=== PATIENT | female | born 1940 | race Caucasian/White ===

== ENCOUNTER 2016-09-25 08:21 | Day surgery (SDC) | payer BC, MEDICARE ==
--- NOTE | 2016-09-25 07:22 | PCM.PREANE ---
Preanesthetic Assessment - Anesthesia/Transfusion/Family Hx Anesthesia History: Prior Anesthesia Without Reaction Type of Anesthesia Reaction: Other (see below) (a bit of nausea with shoulder surgery which patient states was a longer procedure.) Family History of Anesthesia Reaction: No Transfusion History: No Prior Transfusion(s) Intubation History: Unknown - Review of Systems General: No Symptoms, Fatigue (noted per patient due to family stresses.) Pulmonary: No Symptoms (History of UCHE, quit smoking approximately 30 years ago. (1/2 pack/day times 4 yrs history)) Cardiovascular: No Symptoms (History of rheumatic fever, HTN), Dyspnea on Exertion, Edema (History of pedal edema with patient taking lasix.), Lightheadedness (with blood sugar levels per patient.) Gastrointestinal: No symptoms Neurological: No Symptoms (History of arthritits, achy bilateral feet noted per patient since she was a teenager.) Other: Reports: Diabetes (BS @ [id number]), Thyroid Problems (hypothyroidism), Sinus Problem (seasonal allergies noted with plugged ears noted.), Depression - Physical Assessment NPO Status Date: 09/24/16 NPO Status Time: 21:00 Pulse: 83 O2 Sat by Pulse Oximetry: 94 Respiratory Rate: 17 Blood Pressure: 149/56 Temperature: 37.3 C Height: 1.68 m Weight: 111.13 kg ASA Class: 3 Mental Status: Alert & Oriented x3 Airway Class: Mallampati = 2 Dentition: Reports: Normal Dentition, [place](s), Caries Thyro-Mental Finger Breadths: 3 Mouth Opening Finger Breadths: 3 ROM/Head Extension: Full Lungs: Clear to auscultation, Normal respiratory effort Cardiovascular: Regular Rate, Regular Rhythm - Lab Values: hgb=14.7 hct=43.8 ucbcewtwe=221,000 Wr=316 K=4.3 qd=130 CO2=23 BUN=22 CR=0.81 - Imaging/EKG Impressions: EKG: normal sinus rhythm rate=94 CXR: negative - Allergies Allergies/Adverse Reactions: Allergies Allergy/AdvReac Type Severity Reaction Status Date / Time amoxicillin trihydrate Allergy gi upset Verified 09/24/16 16:32 [From Augmentin] potassium clavulanate Allergy gi upset Verified 09/24/16 16:32 [From Augmentin] Sulfa (Sulfonamide Allergy Hives Verified 09/24/16 16:32 Antibiotics) - Anesthesia Plan Pre-Op Medication Ordered: None - Acknowledgements Anesthesia Type Planned: General Anesthesia Pt an Appropriate Candidate for the Planned Anesthesia: Yes Alternatives and Risks of Anesthesia Discussed w Pt/Guardian: Yes Pt/Guardian Understands and Agrees with Anesthesia Plan: Yes PreAnesthesia Questionnaire HEENT History: Reports: Impaired vision Cardiovascular History: Reports: High cholesterol, Hypertension Respiratory History: Reports: None Gastrointestinal History: Reports: Colon polyp Genitourinary History: Reports: None 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 (see below) Other OB/BYN History: post menopausal bleeding, UTI ovarian cyst Musculoskeletal History: Reports: Arthritis, Other (see below) Other Musculoskeletal History: knee pain Neurological History: Reports: None Psychiatric History: Reports: Depression Endocrine/Metabolic History: Reports: Diabetes, type II, Hypothyroidism, Obesity /BMI 30+ Hematologic History: Reports: None Immunologic History: Reports: None Oncologic (Cancer) History: Reports: None Dermatologic History: Reports: None - Past Surgical History Head Surgeries/Procedures: Reports: None GI Surgical History: Reports: Colonoscopy Musculoskeletal Surgical History: Reports: Other (see below) Other Musculoskeletal Surgeries/Procedures:: femur surgery, R shoulder surgery, Left total knee replacement - SUBSTANCE USE Smoking Status *Q: Former Smoker Recreational Drug Use History: No - HOME MEDS Home Medications: Home Meds Lisinopril 5 mg PO DAILY 12/01/14 [History] Simvastatin [Zocor] 10 mg PO BEDTIME 12/01/14 [History] Verapamil [Calan SR] 240 mg PO DAILY 12/01/14 [History] metFORMIN HCl [Metformin HCl ER] 1,000 mg PO BID 12/01/14 [History] Albuterol [Ventolin HFA] 1 - 2 puff INH Q4H PRN 09/24/16 [History] Furosemide [Furosemide] 20 - 40 mg PO DAILY PRN 09/24/16 [History] Ibuprofen 200 - 600 mg PO Q6H PRN 09/24/16 [History] Levothyroxine Sodium [Levothyroxine Sodium] 100 mcg PO DAILY 09/24/16 [History] Sertraline HCl [Sertraline HCl] 75 mg PO DAILY 09/24/16 [History] glipiZIDE [Glipizide ER] 10 mg PO DAILY 09/24/16 [History] - CURRENT (IN HOUSE) MEDS Current Meds: Current Medications Lactated Ringer's (Ringers, Lactated) 1,000 mls @ 125 mls/hr IV ASDIRECTED KIMBERLEE Stop: 09/25/16 23:00 Lidocaine/Sodium Bicarbonate (Buffered Lidocaine 1% In Ns 8.4%) 0.25 ml IV ONETIME PRN PRN Reason: Prior to IV Start Stop: 09/25/16 18:00 Sodium Chloride (Saline Flush) 10 ml FLUSH ASDIRECTED PRN PRN Reason: Keep Vein Open Stop: 09/25/16 18:00
[~2016-09-25 08:21] MED LIST: Lactated Ringers 1,000 ML IV SCH; Lidocaine 1% 6 ML ONE; Lidocaine 1%/Sod Bicarbonate in NS 8.4% 1 ML Syringe IV PRN; Ondansetron 4 MG/2 ML SDV ONE; Propofol 200 MG/20 ML SDV ONE; Sodium Chloride 0.9% 10 ML Syringe FLUSH PRN; Succinylcholine/Normal Saline 100 MG/5 ML Syringe ONE; fentaNYL 100 MCG/2 ML SDV ONE
[2016-09-25] MEDS ORDERED: Ondansetron 4 MG/2 ML SDV IVPUSH PRN (09:46)
[2016-09-25] MEDS ORDERED: Metoclopramide 10 MG/2 ML SDV IV PRN (09:46)
[2016-09-25] MEDS ORDERED: Albuterol 0.083% 2.5 MG/3 ML Neb Soln NEB PRN (09:46)
[2016-09-25] MEDS ORDERED: diphenhydrAMINE 50 MG/ML SDV IVPUSH PRN (09:46)
[2016-09-25] MEDS ORDERED: Albuterol 6.7 GM Inhaler INH ONE (09:56)
--- NOTE | 2016-09-25 10:11 | PCM.POSTAN ---
POST ANESTHESIA ASSESSMENT - MENTAL STATUS Mental Status: alert - VITAL SIGNS Pulse Rate: 77 SaO2: 95 Resp Rate: 18 Blood Pressure: 148/68 Temperature: 37.1 C - RESPIRATORY Respiratory Status: respiratory rate WNL, airway patent, O2 saturation stable, supplemental oxygen - CARDIOVASCULAR CV Status: pulse rate WNL, blood pressure stable - GASTROINTESTINAL GI Status: no symptoms - POST OP HYDRATION Hydration Status: adequate & stable
[2016-09-25] MEDS ORDERED: HYDROmorphone 0.5 MG/0.5 ML Syringe IVPUSH PRN (10:45)
[2016-09-25] MEDS ORDERED: fentaNYL 100 MCG/2 ML SDV IVPUSH PRN (10:45)
[2016-09-25] MEDS ORDERED: Ibuprofen 600 MG Tab PO ONE (11:45)
[2016-09-25 12:34] VITALS: BP 129/68
--- NOTE | 2016-09-25 12:57 | PCM48HPAN ---
Post Anesthesia Note - EVALUATION WITHIN 48HRS OF ANESTHETIC Vital Signs in Normal Range: Yes Patient Participated in Evaluation: Yes Respiratory Function Stable: Yes Airway Patent: Yes Cardiovascular Function Stable: Yes Hydration Status Stable: Yes Pain Control Satisfactory: Yes Nausea and Vomiting Control Satisfactory: Yes Mental Status Recovered: Yes
--- NOTE | 2016-09-25 15:36 | PCM.OPNOTE ---
- General Post-Op/Procedure Note Date of Surgery/Procedure: 09/25/16 Operative Procedure(s): hysteroscopy and dilation and curettage Findings: uterine polyps, very vascular Pre Op Diagnosis: postmenopausal bleeding Post-Op Diagnosis: Same Anesthesia Technique: General ET tube Primary Surgeon: Bella Parra Anesthesia Provider: Marcela Khan Pathology: endometrial curettings EBL in mLs: 10 Condition: Good Free Text/Narrative:: Intake & Output 09/25/16 09/25/16 09/25/16 06:59 14:59 22:59 Intake Total 150 Balance 150 Brief description: Pt was brought to the operating room placed under general anesthetic. She was placed in lithotomy position. The self retaining speculum was placed and the cervix identified. Anterior lip of cervix was grasped with single toothed tenaculum. Cervix was gently dilated to allow passage of 5 mm hysteroscope. Using NS distention media the cavity was inspected with a polyp and significant vascularities findings. Both tubal ostia were seen. The scope was removed and D&C was done. TThe tenaculum was removed and the cervix was hemastatic. Pt tolerated the procedure well and was taken to the recovery room in good condition.
== END 2016-09-25 13:15 | disposition home or self-care (01) ==
LOC: JD.SDS 08:21
PROVIDERS: ATTEND Obstetrics & Gynecology
PROC: 0UDB8ZX Extraction of Endometrium, Via Natural or Artificial Opening Endoscopic, Diagnostic (ICD-10-PCS; principal; 2016-09-25)
DX: C56.9 Malignant neoplasm of unspecified ovary (principal); Z88.2 Allergy status to sulfonamides; E11.9 Type 2 diabetes mellitus without complications; Z79.84 Long term (current) use of oral hypoglycemic drugs; F32.9 Major depressive disorder, single episode, unspecified; E03.9 Hypothyroidism, unspecified; I10 Essential (primary) hypertension; E78.5 Hyperlipidemia, unspecified; M19.90 Unspecified osteoarthritis, unspecified site; Z86.19 Personal history of other infectious and parasitic diseases; Z79.899 Other long term (current) drug therapy; Z96.652 Presence of left artificial knee joint
CPT/HCPCS: 58558; 82962; 88305; 94664; A9270; J0330; J2405; J3010; J7120; 00940; J2704

== ENCOUNTER 2020-12-09 13:58 | Emergency (ER) | payer BC ==
[2020-12-09 14:19] VITALS: BP 168/87; PULSE 84
[2020-12-09] MEDS ORDERED: Proparacaine 0.5% Ophth Soln 15 ML Bottle EYERT ONE (15:24)
[2020-12-09] MEDS ORDERED: Sodium Chloride 0.9% 1,000 ML ONE (15:37)
--- NOTE | 2020-12-09 15:54 | EDM.PDOC ---
ED HPI GENERAL MEDICAL PROBLEM - General Chief Complaint: Eye Problems Stated Complaint: EYE PAIN Time Seen by Provider: 12/09/20 15:19 Source of Information: Reports: Patient, RN Notes Reviewed History Limitations: Reports: No Limitations - History of Present Illness INITIAL COMMENTS - FREE TEXT/NARRATIVE: Patient is an 80-year-old female presenting to the emergency department for evaluation with regards to right eye watering and burning. She reports that she was cleaning her feet with Lysol wipes and her eye itched, she scratched her eye and had the solution from the white center hand. Since that time she has been having intermittent burning and watering of the eyes as well as runny nose on the right side. Denies any significant vision changes. eyes Pain Score (Numeric/FACES): 7 - Related Data Allergies Allergy/AdvReac Type Severity Reaction Status Date / Time Sulfa (Sulfonamide Allergy Hives Verified 12/09/20 14:16 Antibiotics) amoxicillin trihydrate AdvReac gi upset Verified 12/10/20 11:27 [From Augmentin] potassium clavulanate AdvReac gi upset Verified 12/10/20 11:27 [From Augmentin] Home Meds: Home Meds Lisinopril 5 mg PO DAILY 12/01/14 [History] Simvastatin [Zocor] 10 mg PO BEDTIME 12/01/14 [History] Verapamil [Calan SR] 240 mg PO DAILY 12/01/14 [History] metFORMIN HCl [Metformin HCl ER] 1,000 mg PO BID 12/01/14 [History] Albuterol [Ventolin HFA] 1 - 2 puff INH Q4H PRN 09/24/16 [History] Furosemide 20 - 40 mg PO DAILY PRN 09/24/16 [History] Ibuprofen 200 - 600 mg PO Q6H PRN 09/24/16 [History] Levothyroxine Sodium 100 mcg PO DAILY 09/24/16 [History] Sertraline HCl 75 mg PO DAILY 09/24/16 [History] glipiZIDE [Glipizide ER] 10 mg PO DAILY 09/24/16 [History] Past Medical History HEENT History: Reports: Impaired Vision Cardiovascular History: Reports: High Cholesterol, Hypertension Respiratory History: Reports: None Gastrointestinal History: Reports: Colon Polyp Genitourinary History: Reports: None 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 (See Below) 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 History: post menopausal bleeding, UTI ovarian cyst Musculoskeletal History: Reports: Arthritis, Other (See Below) Other Musculoskeletal History: knee pain Neurological History: Reports: None Psychiatric History: Reports: Depression Endocrine/Metabolic History: Reports: Diabetes, Type II, Hypothyroidism, Obesity/BMI 30+ Hematologic History: Reports: None Immunologic History: Reports: None Oncologic (Cancer) History: Reports: None Dermatologic History: Reports: None - Past Surgical History Head Surgeries/Procedures: Reports: None GI Surgical History: Reports: Colonoscopy Musculoskeletal Surgical History: Reports: Other (See Below) Other Musculoskeletal Surgeries/Procedures:: femur surgery, R shoulder surgery, Left total knee replacement Social & Family History - Tobacco Use Tobacco Use Status *Q: Never Tobacco User - Caffeine Use Caffeine Use: Reports: Coffee - Recreational Drug Use Recreational Drug Use: No ED ROS GENERAL - Review of Systems Review Of Systems: Comprehensive ROS is negative, except as noted in HPI. ED EXAM GENERAL W FULL EYE - Physical Exam Exam: See Below General Appearance: Alert, WD/WN, No Apparent Distress Eye Exam: Right Eye: Conjunctival Injection Eyelids: Bilateral: Normal Appearance Conjunctiva & Sclera: Right: Injected Pupils: Normal Accommodation Respiratory/Chest: No Respiratory Distress, Lungs Clear, Normal Breath Sounds, No Accessory Muscle Use, Chest Non-Tender Cardiovascular: Normal Peripheral Pulses, Regular Rate, Rhythm, No Edema, No Gallop, No JVD, No Murmur, No Rub Neurological: Alert, Oriented, CN II-XII Intact, Normal Cognition, Normal Gait, Normal Reflexes, No Motor/Sensory Deficits Psychiatric: Normal Affect, Normal Mood Skin Exam: Warm, Dry, Intact, Normal Color, No Rash Course - Vital Signs Last Recorded V/S: Last Vital Signs Temp 98.1 F 12/09/20 14:16 Pulse 84 12/09/20 14:16 Resp 18 12/09/20 14:16 BP 168/87 H 12/09/20 14:16 Pulse Ox 98 12/09/20 14:16 - Orders/Labs/Meds Meds: Medications Discontinued Medications Generic Name Dose Route Start Last Admin Trade Name Freq PRN Reason Stop Dose Admin Sodium Chloride Confirm 12/09/20 15:37 12/09/20 15:49 Normal Saline Administered 12/09/20 15:38 999 mls/hr Dose Administration 1,000 mls @ as directed .ROUTE .STK-MED ONE Proparacaine HCl 1 ml 12/09/20 15:24 12/09/20 15:48 Proparacaine 0.5% Ophth Soln 15 Ml Bottle EYERT 12/09/20 15:25 1 ml ONETIME ONE Administration - Re-Assessments/Exams Free Text/Narrative Re-Assessment/Exam: Patient is an 80-year-old female presenting to the emergency department with complaints of right eye irritation and right runny nose after getting solution from Lysol wipes in her eyes. On exam, she does have tearing and redness of the right eye. Denies any vision changes. We will irrigate the eye with a liter of normal saline using a Roberto lens. I have ordered proparacaine to be applied prior to this. 12/09/20 17:04 Patient tolerated irrigation of the eye well. States that the burning is much improved. Denies any vision changes. Discussed that the solution of the Lysol wipes will dry her eye out. If she finds that later this evening her eye still seems irritated, she can purchase saline eyedrops and instill them in the eye. She verbalized understanding of this. Discharge instructions as documented. Departure - Departure Time of Disposition: 17:05 Disposition: Home, Self-Care 01 Condition: Good Clinical Impression: Eye irritation - Discharge Information *COPY OF PRESCRIPTION DRUG MONITORING REPORT IN PATIENT KARLOS: No Instructions: Eye Foreign Body, [id number] Referrals: Paula Dunbar NP [Primary Care Provider] - Forms: ED Department Discharge Additional Instructions: You were seen in the emergency department today for evaluation after getting solution from Lysol wipes in your eye. Your eye was irrigated with a liter of saline. This did improve your symptoms. As we discussed, the solution from Lysol contains alcohol and will dry your eye out. If you find later this evening that it is watering excessively or still having some discomfort, you can use [id number] saline eyedrops. Return to ER for any new or worsening symptoms. Sepsis Event Note (ED) - Evaluation Sepsis Screening Result: No Definite Risk
== END 2020-12-09 17:20 | disposition home or self-care (01) ==
LOC: JD.ED 13:58
DX: H57.89 Other specified disorders of eye and adnexa (principal); E78.00 Pure hypercholesterolemia, unspecified; I10 Essential (primary) hypertension; E11.9 Type 2 diabetes mellitus without complications; E66.9 Obesity, unspecified; Z68.35 Body mass index [BMI] 35.0-35.9, adult; Z88.2 Allergy status to sulfonamides; Z88.0 Allergy status to penicillin; Z79.899 Other long term (current) drug therapy; Z79.84 Long term (current) use of oral hypoglycemic drugs
CPT/HCPCS: 99283; J7030

== ENCOUNTER 2025-02-13 16:24 | Emergency (ER) | payer BC ==
[2025-02-13] MEDS ORDERED: Sodium Chloride 0.9% 10 ML Syringe FLUSH PRN (16:44)
[2025-02-13 17:16] LABS: BASOPHILS ABSOLUTE AUTO 0.1 K/mm3 (0.0-0.2); BASOPHILS PERCENT AUTO 0.8 % (0.0-1.0); EOSINOPHILS ABSOLUTE AUTO 0.4 K/mm3 (0.0-0.4); EOSINOPHILS PERCENT AUTO 3.9 % (0.0-6.0); IMMATURE GRAN ABSOLUTE AUTO 0.05 K/mm3 (0.00-0.05); IMMATURE GRAN PERCENT AUTO 0.5 % (0.0-0.4); LYMPHOCYTES ABSOLUTE AUTO 1.8 K/mm3 (1.0-4.8); LYMPHOCYTES PERCENT AUTO 19.7 % (24.0-44.0); MEAN PLATELET VOLUME 9.5 fl (9.4-12.3); MONOCYTES ABSOLUTE AUTO 0.7 K/mm3 (0.0-0.8); MONOCYTES PERCENT AUTO 7.1 % (0.0-8.0); NEUTROPHILS ABSOLUTE AUTO 6.3 K/mm3 (1.8-7.7); NEUTROPHILS PERCENT AUTO 68.0 % (41.0-71.0); NRBC ABSOLUTE 0.00 (0.00-0.02); NRBC PERCENT 0.0 % (0.0-0.2); PLATELET COUNT,PLT 240 K/mm3 (150-400); RED BLOOD CELL COUNT 4.81 M/mm3 (4.10-5.30); WHITE BLOOD CELL COUNT,WBC 9.25 K/mm3 (3.9-11.3)
[2025-02-13 17:37] LABS: A/G RATIO 1.0 (1-2); ALANINE AMINOTRANSFERASE,ALT 20 U/L (14-59); ASPARTATE AMNIOTRANSFERASE,AST 14 U/L (15-37); BILIRUBIN TOTAL 0.5 mg/dL (0.2-1.0); BLOOD UREA NITROGEN,BUN 57 mg/dL (7-18); CARBON DIOXIDE,CO2 24 mEq/L (21-32); CHLORIDE,CL 106 mEq/L (98-107); CREATININE 1.8 mg/dL (0.55-1.02); EST CRCL DRUG DOSING (CG) 19.37 mL/min; ESTIMATED GFR 27 mL/min (>60); GLUCOSE RANDOM 111 mg/dL (70-99); POTASSIUM,K 5.7 mEq/L (3.5-5.1); PROTEIN TOTAL,TP 7.9 g/dl (6.4-8.2); SODIUM,NA 139 mEq/L (136-145)
[2025-02-13 19:46] LABS: APPEARANCE,URINE CLEAR (Clear); GLUCOSE,URINE NEGATIVE (Negative); OCCULT BLOOD,URINE NEGATIVE (Negative)
[2025-02-13 20:01] LABS: EPITHELIAL CELLS,URINE 0-5 /hpf (0-5)
[2025-02-13 20:48] LABS: BLOOD UREA NITROGEN,BUN 56.0 mg/dL (7-18); CARBON DIOXIDE,CO2 23.0 mEq/L (21-32); CHLORIDE,CL 108.0 mEq/L (98-107); CREATININE 1.7 mg/dL (0.55-1.02); EST CRCL DRUG DOSING (CG) 20.51 mL/min; ESTIMATED GFR 29.0 mL/min (>60); GLUCOSE RANDOM 101.0 mg/dL (70-99); POTASSIUM,K 5.4 mEq/L (3.5-5.1); SODIUM,NA 141.0 mEq/L (136-145)
[2025-02-13 21:28] VITALS: BP 125/54; PULSE 72
== END 2025-02-13 22:45 | disposition home or self-care (01) ==
LOC: JD.ED 16:24
DX: E86.0 Dehydration (principal); E87.5 Hyperkalemia; R74.8 Abnormal levels of other serum enzymes; I10 Essential (primary) hypertension; E78.00 Pure hypercholesterolemia, unspecified; E03.9 Hypothyroidism, unspecified; E11.9 Type 2 diabetes mellitus without complications; Z88.2 Allergy status to sulfonamides; Z88.8 Allergy status to other drugs, medicaments and biological substances; Z79.84 Long term (current) use of oral hypoglycemic drugs; Z79.899 Other long term (current) drug therapy; Z79.890 Hormone replacement therapy
CPT/HCPCS: 36415; 71046; 71046-26; 80048; 80053; 81001; 85025; 86140; 87086; 87088; 87186; 96360; 96361; 99283; 99285-25; J7030

== ENCOUNTER 2025-03-19 17:11 | Emergency (ER) | payer BC ==
[2025-03-19 17:27] VITALS: BP 102/81; PULSE 103
[2025-03-19] MEDS ORDERED: Sodium Chloride 0.9% 10 ML Syringe FLUSH PRN (17:40)
[2025-03-19 18:29] LABS: BASOPHILS ABSOLUTE AUTO 0.1 K/mm3 (0.0-0.2); BASOPHILS PERCENT AUTO 0.7 % (0.0-1.0); EOSINOPHILS ABSOLUTE AUTO 0.4 K/mm3 (0.0-0.4); EOSINOPHILS PERCENT AUTO 3.5 % (0.0-6.0); IMMATURE GRAN ABSOLUTE AUTO 0.06 K/mm3 (0.00-0.05); IMMATURE GRAN PERCENT AUTO 0.5 % (0.0-0.4); LYMPHOCYTES ABSOLUTE AUTO 3.3 K/mm3 (1.0-4.8); LYMPHOCYTES PERCENT AUTO 28.1 % (24.0-44.0); MEAN PLATELET VOLUME 9.5 fl (9.4-12.3); MONOCYTES ABSOLUTE AUTO 0.9 K/mm3 (0.0-0.8); MONOCYTES PERCENT AUTO 7.6 % (0.0-8.0); NEUTROPHILS ABSOLUTE AUTO 6.9 K/mm3 (1.8-7.7); NEUTROPHILS PERCENT AUTO 59.6 % (41.0-71.0); NRBC ABSOLUTE 0.00 (0.00-0.02); NRBC PERCENT 0.0 % (0.0-0.2); PLATELET COUNT,PLT 172 K/mm3 (150-400); RED BLOOD CELL COUNT 4.28 M/mm3 (4.10-5.30); WHITE BLOOD CELL COUNT,WBC 11.60 K/mm3 (3.9-11.3)
[2025-03-19 18:54] LABS: INR 1.06
[2025-03-19 18:55] LABS: PTT,PARTIAL THROMBOPLSTIN TIME 24.5 SECONDS (21.7-31.4)
[2025-03-19 18:59] LABS: A/G RATIO 0.9 (1-2); ALANINE AMINOTRANSFERASE,ALT 15.0 U/L (14-59); ASPARTATE AMNIOTRANSFERASE,AST 14.0 U/L (15-37); BILIRUBIN TOTAL 0.7 mg/dL (0.2-1.0); BLOOD UREA NITROGEN,BUN 42.0 mg/dL (7-18); CARBON DIOXIDE,CO2 29.0 mEq/L (21-32); CHLORIDE,CL 105.0 mEq/L (98-107); CREATININE 1.8 mg/dL (0.55-1.02); EST CRCL DRUG DOSING (CG) 20.19 mL/min; ESTIMATED GFR 27.0 mL/min (>60); GLUCOSE RANDOM 112.0 mg/dL (70-99); POTASSIUM,K 5.3 mEq/L (3.5-5.1); PROTEIN TOTAL,TP 7.0 g/dl (6.4-8.2); SODIUM,NA 143.0 mEq/L (136-145)
[2025-03-19 19:06] LABS: TROPONIN I HIGH SENSITIVITY 898.0 pg/mL (<=51)
[2025-03-19] MEDS: Heparin Sodium 5,000 Units/ML Vial IVPUSH ONE (20:07)
[2025-03-19] MEDS: Heparin Sodium/D5W 250 ML IV SCH (20:07)
== END 2025-03-19 23:01 ==
LOC: JD.ED 17:11
DX: I21.4 Non-ST elevation (NSTEMI) myocardial infarction (principal); I11.0 Hypertensive heart disease with heart failure; I50.9 Heart failure, unspecified; E11.9 Type 2 diabetes mellitus without complications; R79.89 Other specified abnormal findings of blood chemistry; E66.9 Obesity, unspecified; E03.9 Hypothyroidism, unspecified; E78.00 Pure hypercholesterolemia, unspecified; Z88.2 Allergy status to sulfonamides; Z88.0 Allergy status to penicillin; Z88.8 Allergy status to other drugs, medicaments and biological substances; Z79.899 Other long term (current) drug therapy; Z79.84 Long term (current) use of oral hypoglycemic drugs; Z79.890 Hormone replacement therapy; Z87.891 Personal history of nicotine dependence
CPT/HCPCS: 36415; 71045; 80053; 83880; 84484; 85025; 85610; 85730; 93005; 96365; 96366; 99285; A9270; J1644